=== PATIENT | female | born 2000 | race Caucasian/White ===

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

== ENCOUNTER 2021-06-29 01:58 | Outpatient (CLI) | payer OTHER, MEDICAID, SELFPAY ==
[2021-06-29 02:19] VITALS: BMI 36.8
[2021-06-29 02:43] LABS: Color, Urine Yellow (Yellow); Glucose, Dipstick Normal (Normal); Ketone-Dipstick Negative (Negative); Leukocyte Esterase-Dipstick Negative /ul (Negative); Nitrite-Dipstick Negative (Negative); Occult Blood-Urine Negative /ul (Negative); Protein-Dipstick Negative (Negative); Specific Gravity, Urine 1.015 (1.002-1.030); Urine Bilirubin Dipstick Negative (Negative); Urine Clarity Clear (Clear); Urine Urobilinogen Normal (Normal)
[2021-06-29] MEDS: Lactated Ringers 1,000 ML 999 ML IV (03:30)
[2021-06-29 03:50] LABS: Absolute Lymphocyte Count 2.31 X10^3/uL (0.83-4.51); Absolute Neutrophil Count 9.2 X10^3/uL (2.0-7.7); Basophil# 0.04 X10^3/uL; Basophil% 0.3 % (0-1); Eosinophil# 0.16 X10^3/uL; Eosinophils% 1.2 % (0-5); Hematocrit 31.3 % (37-47); Hemoglobin 10.5 g/dL (12.0-15.0); Lymphocyte # 2.31 X10^3/ul (0.83-4.51); Lymphocyte % 17.7 % (19-41); Mean Corp Hgb Conc 33.5 g/dL (32-36); Mean Corpuscular Hgb 31.2 pg (27.0-32.0); Mean Corpuscular Volume 92.9 fL (81-99); Mean Platelet Vol. 9.3 fl (6.2-12.0); Monocyte# 1.24 X10^3/uL; Monocyte% 9.5 % (0-10); NRBC Flagged by Analyzer 0 % (0-5); Neutrophil % 70.5 % (47-70); Platelet Count 328 K/mm3 (150-450); RBC Distribution Width CV 12.3 % (11.6-14.6); RBC Distribution Width SD 42.3 fl (35.1-43.9); Red Blood Count 3.37 M/mm3 (4.2-5.4); White Blood Count 13.1 K/mm3 (4.4-11.0)
[2021-06-29] MEDS: Ondansetron 4 MG/2 ML Vial 8 MG IV (04:07)
[2021-06-29] MEDS: Acetaminophen 500 MG Tablet 1000 MG PO (04:07)
[2021-06-29 04:08] LABS: ALB/GLOB Ratio 0.7 RATIO (0.9-2.4); AST(SGOT) 12 U/L (15-37); Alanine Aminotransfer ALT/SGPT 15 U/L (13-56); Albumin, Serum 2.9 g/dL (3.2-5.0); Alkaline Phosphatase 79 U/L (45-117); Anion Gap 9 (5-15); BUN 9 mg/dL (7-18); BUN/Creat Ratio 13.4 RATIO (10-20); Calcium,Total 8.5 mg/dL (8.5-10.1); Chloride 106 mmol/L (98-107); Creatinine, Serum 0.67 mg/dL (0.55-1.02); EST Glomerular Filtration Rate 117 mL/min (>60); Est Glom Filt Rate - Afr Amer 142 mL/min (>60); Estimated Creatinine Clearance 105.05 ml/min; Globulin 3.9 g/dL (2.2-4.2); Glucose 95 mg/dL (74-106); Potassium 3.5 mmol/L (3.5-5.1); Protein, Total 6.8 g/dL (6.4-8.2); Sodium Level 139 mmol/L (136-145)
[2021-06-29] MEDS: proCHLORPERazine 10 MG/2 ML Vial IV (06:19)
[2021-06-29] MEDS: 0.9% Saline Lock 10 ML Syringe IV (06:25)
[2021-06-29 08:27] VITALS: BP 137/82; PULSE 99
[2021-06-29 08:28] VITALS: BP 117/67; PULSE 98
[2021-06-29 08:29] VITALS: PULSE 180; TEMP 36.3; O2SAT 81
[2021-06-29 08:30] VITALS: O2SAT 100
--- NOTE | 2021-06-29 08:45 | OB.TRI.NOTE ---
HPI - General HPI Narrative JIM ZHANG, is a 21 F who presents with irregular ctx's, nausea, vomiting. No vb, lof. Good FM. PFSH PFSH Home Medications Slow Fe 1 tab PO/SL DAILY 06/29/21 [History Last Taken Unknown] [id number] [] tab PO 06/29/21 [History Last Taken Unknown] Allergy/AdvReac Type Severity Reaction Status Date / Time amoxicillin Allergy Rash Verified 06/29/21 02:20 Penicillins [PCN] Allergy Rash Verified 06/29/21 02:20 Social History Smoking Status: Current every day smoker NST FHR Rate Baby A Baseline: 140 Variability:: Moderate Accelerations:: 15 x 15 Decelerations:: None NST Reactive:: Yes FHR Category:: Category I Uterine Activity:: Irregular ctx's Assessment & Plan (1) 33 weeks gestation of : PLAN: Cervix unchanged on recheck and patient very comfortable appearing. No regular ctx's on toco. N/V improved with fluids and Zofran. Tolerating PO. Ok to discharge home. (2) Uterine contractions:
== END 2021-06-29 09:12 | disposition home or self-care (01) ==
LOC: WPOUT 02:04 → WP 02:05
PROVIDERS: PCP Pediatrics; Visit Provider Obstetrics & Gynecology
DX: O21.2 Late vomiting of pregnancy (principal); N85.8 Other specified noninflammatory disorders of uterus; F17.200 Nicotine dependence, unspecified, uncomplicated; O99.333 Smoking (tobacco) complicating pregnancy, third trimester; Z3A.33 33 weeks gestation of pregnancy
CPT/HCPCS: 96361; 96374; 96375; 36415; 59025; 59050; 80053; 81002; 85025; 99218; J7120; A4216; G0378; J2405

== ENCOUNTER 2021-06-30 17:50 | Outpatient (CLI) | payer OTHER, MEDICAID, SELFPAY ==
[2021-06-29 02:19] VITALS: BMI 36.8
[2021-06-30 18:20] VITALS: BMI 35.8
[2021-06-30] MEDS: Lactated Ringers 1,000 ML 999 ML IV (18:20)
[2021-06-30] MEDS: Ondansetron 4 MG/2 ML Vial IM (18:47)
[2021-06-30 19:10] LABS: Absolute Neutrophil Count 8.1 X10^3/uL (2.0-7.7); Basophil# 0.05 X10^3/uL; Basophil% 0.4 % (0-1); Eosinophil# 0.25 X10^3/uL; Eosinophils% 2.1 % (0-5); Hematocrit 34.6 % (37-47); Hemoglobin 11.7 g/dL (12.0-15.0); Lymphocyte % 18.9 % (19-41); Mean Corp Hgb Conc 33.8 g/dL (32-36); Mean Corpuscular Hgb 31.3 pg (27.0-32.0); Mean Corpuscular Volume 92.5 fL (81-99); Mean Platelet Vol. 9.5 fl (6.2-12.0); Monocyte# 1.36 X10^3/uL; Monocyte% 11.2 % (0-10); NRBC Flagged by Analyzer 0 % (0-5); Neutrophil # 8.13 X10^3/uL (2.7-7.7); Neutrophil % 66.9 % (47-70); Platelet Count 347 K/mm3 (150-450); RBC Distribution Width CV 12.5 % (11.6-14.6); RBC Distribution Width SD 42.2 fl (35.1-43.9); Red Blood Count 3.74 M/mm3 (4.2-5.4); White Blood Count 12.2 K/mm3 (4.4-11.0)
[2021-06-30 19:27] LABS: ALB/GLOB Ratio 0.7 RATIO (0.9-2.4); AST(SGOT) 11 U/L (15-37); Alanine Aminotransfer ALT/SGPT 16 U/L (13-56); Albumin, Serum 3.1 g/dL (3.2-5.0); Alkaline Phosphatase 89 U/L (45-117); Anion Gap 9 (5-15); BUN 5 mg/dL (7-18); BUN/Creat Ratio 7.5 RATIO (10-20); Calcium,Total 8.8 mg/dL (8.5-10.1); Chloride 103 mmol/L (98-107); Creatinine, Serum 0.67 mg/dL (0.55-1.02); EST Glomerular Filtration Rate 118 mL/min (>60); Est Glom Filt Rate - Afr Amer 143 mL/min (>60); Estimated Creatinine Clearance 105.05 ml/min; Globulin 4.5 g/dL (2.2-4.2); Glucose 77 mg/dL (74-106); Potassium 3.6 mmol/L (3.5-5.1); Protein, Total 7.6 g/dL (6.4-8.2); Sodium Level 137 mmol/L (136-145)
[2021-06-30 19:35] VITALS: BP 129/71; PULSE 91
--- NOTE | 2021-07-01 09:12 | PN.OBGYN_ITS ---
Subjective Subjective Patient was having nausea and vomiting, and reported that she could not keep any food or liquids down. She was also having some cramping and irregular contractions. No fevers, abdominal pain, diarrhea. Requesting a work excuse. Objective Data Objective Data Vital Signs: Vital Signs Pulse BP 91 129/71 H 06/30/21 19:35 06/30/21 19:35 Weight: 195 lb 15.855 oz Body Mass Index (BMI) 35.8 Intake & Output: Intake and Output for Last 24 Hours 06/29/21 06/30/21 07/01/21 23:59 23:59 23:59 Intake Total 999 / 999 Balance 999 / 999 Lab / Micro Data Result Diagrams: 06/30/21 18:20 06/30/21 18:20 Labs: Laboratory Results - last 24 hr 06/30/21 18:20: WBC 12.2 H, RBC 3.74 L, Hgb 11.7 L, Hct 34.6 L, MCV 92.5, MCH 31.3, MCHC 33.8, RDW Std Deviation 42.2, RDW Coeff of Nava 12.5, Plt Count 347, MPV 9.5, Immature Gran % (Auto) 0.500, Neut % (Auto) 66.9, Lymph % (Auto) 18.9 L , [place] % (Auto) 11.2 H, Eos % (Auto) 2.1, Baso % (Auto) 0.4, Absolute Neuts (auto) 8.1 H, Absolute Lymphs (auto) 2.30, Nucleated RBC % 0 06/30/21 18:20: Sodium 137, Potassium 3.6, Chloride 103, Carbon Dioxide 25.0, Anion Gap 9, BUN 5 L, Creatinine 0.67, Estim Creat Clear Calc 105.05, Est GFR (MDRD) Af Amer 143, Est GFR (MDRD) Non-Af 118, BUN/Creatinine Ratio 7.5 L, Glucose 77, Calcium 8.8, Total Bilirubin 0.30, AST 11 L, ALT 16, Alkaline Phosphatase 89, Total Protein 7.6, Albumin 3.1 L, Globulin 4.5 H, Albumin/Globulin Ratio 0.7 L NST FHR Rate Baby A Baseline: 130 Variability:: Moderate Accelerations:: 15 x 15 Decelerations:: None NST Reactive:: Yes Uterine Activity:: No regular ctx's Assessment & Plan (1) 33 weeks gestation of : PLAN: Labs and vitals WNL. Improved with IVF hydration and Zofran. To follow up in office. (2) Nausea/vomiting in :
== END 2021-06-30 20:08 | disposition home or self-care (01) ==
LOC: WPOUT 18:01 → WP 18:02
PROVIDERS: PCP Pediatrics; Referring Provider Obstetrics & Gynecology; Visit Provider Obstetrics & Gynecology
DX: O21.2 Late vomiting of pregnancy (principal); Z3A.33 33 weeks gestation of pregnancy
CPT/HCPCS: 96360; 36415; 59025; 59050; 80053; 85025; 99218; J7120; G0378; J2405

== ENCOUNTER 2021-08-10 11:50 | Inpatient (IN) | payer OTHER, MEDICAID, SELFPAY ==
[2021-08-10] VITALS (52 sets, daily range): BP systolic 85–127; BP diastolic 45–76; PULSE 71–165; RESP 18; TEMP 36.1–37; O2SAT 82–100; BMI 35.6
[2021-08-10] MEDS: Lactated Ringers 1,000 ML 50 ML IV (12:38)
[2021-08-10 12:45] LABS: Absolute Lymphocyte Count 1.61 X10^3/uL (0.83-4.51); Absolute Neutrophil Count 6.3 X10^3/uL (2.0-7.7); Basophil# 0.03 X10^3/uL; Basophil% 0.3 % (0-1); Eosinophil# 0.24 X10^3/uL; Eosinophils% 2.6 % (0-5); Hematocrit 32.7 % (37-47); Hemoglobin 10.9 g/dL (12.0-15.0); Lymphocyte # 1.61 X10^3/ul (0.83-4.51); Lymphocyte % 17.6 % (19-41); Mean Corp Hgb Conc 33.3 g/dL (32-36); Mean Corpuscular Hgb 30.8 pg (27.0-32.0); Mean Corpuscular Volume 92.4 fL (81-99); Mean Platelet Vol. 9.7 fl (6.2-12.0); Monocyte# 0.89 X10^3/uL; Monocyte% 9.7 % (0-10); NRBC Flagged by Analyzer 0 % (0-5); Neutrophil # 6.34 X10^3/uL (2.7-7.7); Neutrophil % 69.4 % (47-70); Platelet Count 313 K/mm3 (150-450); RBC Distribution Width CV 12.8 % (11.6-14.6); RBC Distribution Width SD 43.5 fl (35.1-43.9); Red Blood Count 3.54 M/mm3 (4.2-5.4); White Blood Count 9.2 K/mm3 (4.4-11.0)
--- NOTE | 2021-08-10 12:47 | PCM.HP.OB ---
HPI - General General Date of Admission: 08/10/21 Date of Service: 08/10/21 Chief Complaint: induction of labor HPI Narrative danny SANTO 21 @ 39 5/7 weeks presented to the office uncomfortable with advanced cervical dilation and desires induction of labor Maternal Data Information Final NEDRA: 08/12/21 Gestational age: 39 5/7 PFSH PFSH Home Medications Slow Fe 3 tab PO/SL DAILY 06/29/21 [History Last Taken 06/28/21 20:00 1 tab] [id number] [] 1 tab PO DAILY 06/29/21 [History Last Taken 06/28/21 20:00 1 tab] Epi E-Z Pen 1 ea OTHER PRN PRN 08/10/21 [History Last Taken Unknown] Allergy/AdvReac Type Severity Reaction Status Date / Time amoxicillin Allergy Rash Verified 06/29/21 02:20 animal dander Allergy Hives Verified 08/10/21 12:20 bee venom protein (honey bee) Allergy Hives Verified 08/10/21 12:20 Penicillins [PCN] Allergy Rash Verified 06/29/21 02:20 Social History Smoking Status: Current every day smoker ROS Constitutional Constitutional: Denies fatigue, fever(s) or malaise Eyes Eyes: Denies change in vision ENT HEENT: Denies dizziness or headache(s) Cardiovascular Cardiovascular: Denies chest pain, dyspnea or lightheadedness Respiratory/Chest Respiratory/Chest: Denies cough or dyspnea Gastrointestinal Gastrointestinal: Denies change in bowel habits Genitourinary Genitourinary: Denies burning urination or genital lesions Integumentary Integumentary: Denies rash Neurologic Neurologic: Denies confusion, dizziness, headache(s), numbness or weakness Vital Signs Vital Signs Vital Signs: 08/10/21 12:15 Temperature 97.2 F L Temperature Source Temporal Pulse Rate 112 H Blood Pressure 119/65 BP Systolic 119 BP Diastolic 65 Pulse Ox 98 Weight Weight: 88.451 kg Body Mass Index (BMI) 35.6 Physical Exam Const alert and no apparent distress General Appearance: cooperative HEENT normocephalic Resp normal respiratory effort Cardio regular rate GI soft to palpation GI Narrative: gravid, nontender, appropriate for gestational age Extremity no calf tenderness General Extremity: edema Skin no wounds Rashes: No rashes noted Psych activity/motor behavior normal Labs Labs Labs: Blood Type Pending Antibody Screen Pending Hct 32.7 % (37-47) L Hgb 10.9 g/dL (12.0-15.0) L C.trachomatis DNA (PCR) Negative (Negative) Assessment & Plan (1) 39 weeks gestation of : PLAN: R/B/A/P to induction of labor reviewed, questions answered nad she desires to proceed. Pit/AROM induction. Epidural, NO or IV meds prn pain control. EFW < 4500 gm clinically, pelvis clinically adequate to expect vaginal delivery. (2) Multigravida in third trimester: (3) Elective induction of labor planned:
[2021-08-10] MEDS: Oxytocin 30 units/NS 500 ml 30 UNITS/500 ML IV.SOLN IV (12:59)
[2021-08-10] MEDS: Lactated Ringers 500 ML 999 ML IV ×2 (16:00→17:55)
[2021-08-10] MEDS: fentaNYL-bupivacaine (epidural) 100 ML BAG EPIDURAL (16:36)
[2021-08-10] MEDS: Mag Hydrox/Al Hydrox/Simeth 30 ML UDC PO (18:04)
[2021-08-10] MEDS: Ondansetron 4 MG/2 ML Vial IV (19:44)
[2021-08-10] MEDS: 0.9% Saline Lock 10 ML Syringe IV (19:45)
--- NOTE | 2021-08-10 20:07 | OP.PCM_ITS ---
Assessment & Plan (1) Normal vaginal delivery: Maternal Data Information Final NEDRA: 08/12/21 Gestational age: 39 5/7 Vaginal Delivery Maternal Presentation Maternal Presentation: Elective Induction Type of Induction: Pitocin and Amniotomy Operative Information Date of Procedure: 08/10/21 Pre-Operative Diagnosis: labor Post-Operative Diagnosis: same Surgery / Procedure Performed: Spontaneous Vaginal Delivery Type of Anesthesia: Epidural Special Medications: none Drain: Thornton to straight drain Estimated Blood Loss: 300 Time of Delivery: 19:56 Findings Description of Procedure: A vigorous [female] infant was delivered [BRYNN] over an intact perineum. A tight nuchal cord was reduced without difficulty. The remainder the infant was delivered with maternal pushing and gentle traction only in less than 15 seconds. The Pitocin infusion was initiated for active ma nagement of the third stage. The cord was clamped and cut [after 1 minute]. The was attended to by the waiting nursing staff. The placenta was delivered spontaneously and intact. The cervix and vagina were intact. Sponge and needle counts were correct. A vaginal sweep was completed by me. Presentation: BRYNN Amniotic Membrane Rupture Type: Artificial Amniotic Fluid Description: Clear Placental Delivery Description: Spontaneous Placenta Disposition: [facility] Cord Vessel Description: 3 Vessels Cord Entanglement: Around neck x 1, tight Nuchal Cord Compression: Without compression Infant A Gender: Female (Michelle) (1 minute): 8 (5 minute): 9 Delayed Cord Clamping: Yes Post Vaginal Delivery Medications Given After Delivery: IV Pitocin Episiotomy Description: None Laceration: None Complication Complications: None Admit VTE Documentation VTE Present on Admission: No VTE Mechan Device Prophylaxis: None VTE Pharm Prophylaxis Ordered: No Reason Prophylaxis Not Ordered: Procedure Not Indicated
[2021-08-10] MEDS: Oxytocin 30 units/NS 500 ml 30 UNITS/500 ML IV.SOLN 334 UNITS IV (21:58)
[2021-08-10] MEDS: Acetaminophen 500 MG Tablet 1000 MG PO (22:04)
[2021-08-10] MEDS: Ibuprofen 600 MG Tablet PO (23:30)
[2021-08-11 03:42] VITALS: BP 95/40; PULSE 73; RESP 16
[2021-08-11] MEDS: Acetaminophen 500 MG Tablet 1000 MG PO ×3 (04:45→17:02)
[2021-08-11] MEDS: Ibuprofen 600 MG Tablet PO ×3 (06:40→21:25)
[2021-08-11 07:42] VITALS: BP 118/38; PULSE 79; RESP 18; TEMP 36.1; O2SAT 97
--- NOTE | 2021-08-11 09:42 | PCM.PN.OB ---
Subjective Subjective Pain well controlled. Average lochia. Objective Data Objective Data Vital Signs: Vital Signs Temp Pulse Resp BP Pulse Ox 97 F L 79 18 118/38 L 97 08/11/21 07:42 08/11/21 07:42 08/11/21 07:42 08/11/21 07:42 08/11/21 07:42 Oxygen Delivery Method Room Air Weight: 88.451 kg Body Mass Index (BMI) 35.6 Intake & Output: Intake and Output for Last 24 Hours 08/09/21 08/10/21 08/11/21 23:59 23:59 23:59 Intake Total 2354.83 / 2354.83 333 / 333 Output Total 600 / 600 850 / 850 Balance 1754.83 / 1754.83 -517 / -517 Lab / Micro Data Result Diagrams: 08/10/21 12:30 Labs: Laboratory Results - last 24 hr 08/10/21 12:30: WBC 9.2, RBC 3.54 L, Hgb 10.9 L, Hct 32.7 L, MCV 92.4, MCH 30.8, MCHC 33.3, RDW Std Deviation 43.5, RDW Coeff of Nava 12.8, Plt Count 313, MPV 9.7, Immature Gran % (Auto) 0.400, Neut % (Auto) 69.4, Lymph % (Auto) 17.6 L, [place] % (Auto) 9.7, Eos % (Auto) 2.6, Baso % (Auto) 0.3, Absolute Neuts (auto) 6.3, Absolute Lymphs (auto) 1.61, Nucleated RBC % 0 08/10/21 12:30: Blood Type A NEGATIVE, Antibody Screen NEGATIVE 08/10/21 21:25: Screen NEGATIVE, Baby's Blood Type A POSITIVE, Baby's SHANTEL NEGATIVE Micro: Microbiology 08/10/21 12:30 Nasal Secretion SARS-CoV-2 Antigen (Rapid) - Final Physical Exam Const alert and no apparent distress Narrative: Fundus firm, below umbilicus. Assessment & Plan (1) Normal vaginal delivery: PLAN: day #1. Patient is doing well. is doing well. Desires discharge home later tonight if okay with pediatrics. Desires Depo-Provera for control.
--- NOTE | 2021-08-11 09:43 | PCM.DC.SUM ---
Providers Date of Admission: 08/10/21 Primary Care Physician: Dr. Renzo Figueroa MD Reason For Visit: VAGINAL DELIVERY Diagnosis Discharge Diagnosis (1) Normal vaginal delivery: Status: Acute Code(s): O80 - Encounter for full-term uncomplicated delivery Medications at Discharge Home Medications Slow Fe 3 tab PO/SL DAILY 06/29/21 [id number] [] 1 tab PO DAILY 06/29/21 Epi E-Z Pen 1 ea OTHER PRN PRN 08/10/21 Hospital Course Operations None Procedures None Summary of Care Provided Hospital Course: Patient was admitted for the induction of labor due to advanced cervical dilation and maternal discomfort. She delivered without difficulty. She desired discharge home on postoperative day #1 with routine instructions. Weight / BMI Weight Weight: 88.451 kg Body Mass Index (BMI) 35.6 ABG / Lab / Microbiology Data Result Diagrams: 08/10/21 12:30 Laboratory: Laboratory Results - last 24 hr 08/10/21 12:30: WBC 9.2, RBC 3.54 L, Hgb 10.9 L, Hct 32.7 L, MCV 92.4, MCH 30.8, MCHC 33.3, RDW Std Deviation 43.5, RDW Coeff of Nava 12.8, Plt Count 313, MPV 9.7, Immature Gran % (Auto) 0.400, Neut % (Auto) 69.4, Lymph % (Auto) 17.6 L, [place] % (Auto) 9.7, Eos % (Auto) 2.6, Baso % (Auto) 0.3, Absolute Neuts (auto) 6.3, Absolute Lymphs (auto) 1.61, Nucleated RBC % 0 08/10/21 12:30: Blood Type A NEGATIVE, Antibody Screen NEGATIVE 08/10/21 21:25: Screen NEGATIVE, Baby's Blood Type A POSITIVE, Baby's SHANTEL NEGATIVE Microbiology: Microbiology 08/10/21 12:30 Nasal Secretion SARS-CoV-2 Antigen (Rapid) - Final Meaningful Use Info Meaningful Use Diagnoses (Choose all that apply): None applicable Discharge Plan Admission Admit Date/Time: 08/10/21 11:50 Primary Reason for Your Visit: Vaginal delivery Attending Provider: Kena Higgins Primary Care Provider: Renzo Figueroa Instructions Patient Instructions: After a Vaginal Discharge Orders/Prescriptions Prescriptions: No Action 1 mg Tablet 1 tab PO DAILY RF: 0 Slow Fe 3 tab PO/SL DAILY RF: 0 Epi E-Z Pen 1 ea OTHER PRN PRN (Reason: bee sting allergy) RF: 0 Referrals / Follow Up: Renzo Figueroa MD [Primary Care Provider] - Disposition Disposition (needs filled in before D/C Order can be placed): Home, Self Care
[2021-08-11] MEDS: MedroxyPROGESTERone 150 MG/ML Syringe IM (11:03)
[2021-08-11 11:11] VITALS: BP 109/60; PULSE 86; RESP 16; TEMP 36.2
--- NOTE | 2021-08-11 11:43 | CASEMGMT ---
SW Note Referral Source: hand workerpersonal care aide Reason: History of bipolar and anxiety SW met with patient and the fob in the room. Patient was holding the nb and appeared to be appropriately bonding with the . Mother brightened when speaking about the . Patient gave verbal consent to speak to her in the presence of the significant other, Con. 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 Patient said that was tired this morning in regards to breast feeding MOB's child: Stephon age 1 1/2. Grandparents are watching him while patient is in the hospital. Housing: Patient resides in a rental with her parents, PRIYA, Stephon and Michelle. She indicated her parents help with the child(joi). Transportation: Patient reports she is able to drive and has access to transportation. Supplies: Patient reports she has a carseat, bassinet, crib, clothes and diapers. Patient said I nested well. Supports: Patient reports her support are her parents, Con (PRIYA) and even my son. Education Level: Patient reports that she graduated high school and had some college. She reports no learning difficulties. She reports she did not continue college as she did not know what career path she wanted to pursue. 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 She plans to take 6 weeks off. Agencies: Patient reports that she has [employer] insurance as her secondary insurance. She said that she is also linked with WIC and plans to call them to advise of the 's . Patient was educated on [facility] but declined a referral. SW gave patient handout on how to contact [facility] for a referral. FOB: Con (Significant Other) Time Together: over 2 years Involved at : FOB reports that he will be involved with the . Employment: Patient is employed at [employer]. He plans to take 1 week off and is hoping his boss will allow him to take more. Other children: FOB reports the is his first child FOB MH/AOD/DV History: Patient reports history of ADD and anxiety with FOB. FOB reports that he has learned to manage it himself and reports he has learned coping skills. Patient's mental health History: Chart review noted that patient was seen in ED at [facility] at age 14 for SI and had psych hospitalization. Patient reports her diagnosis is anxiety, bipolar tendencies and MDD. Patient said that she was previously hospitalized 3 times at [facility]. Patient reports she has no current SI/HI. PHQ-2 given with score of 0. Patient said that she believes she had post depression after the of her son, Stephon. SW asked about what her symptoms were and she said I cried alot. Patient said that she managed by leaning on him (FOB) alot. Patient said that she is not currently in counseling and feels she has learned to manage. Patient said that she has a good mindset and feels that this post period will be different in relations to life situations. SW educated patient on Post Depression. Patient was asked about AOD and Drug use. Patient denied drug or alcohol use. Patient said I can't even recall the last time I got a buzz. Patient reports that she smokes cigarettes. Patient had reported that she had quit then her grandfather , her son went to [facility] for one week and my coping skill was smoking so she had resumed smoking. SW educated patient about the need to smoke outside and patient said that they always smoke outside. SW educated patient on PPD, Safe Sleeping and Shaken Baby Syndrome. SW provided handout on 10 facts about anxiety and depression, and Post depression checklist, [facility] [place], Safe Sleep brochure, [facility] Mothers of Newborns, Depression and Anxiety Post Support including phone number, On line resources for Post mood and anxiety disorder and list of Counseling Agencies. SW educated patient on when to seek support for any symptoms of depression (5 days) and contact the MD. Patient and FOB verbalized understanding. Patient declined referral to [facility]. She said that she will call [facility] to update them regarding 's . No other social work needs at this time. SW updated RN. RN Odette voiced no concerns. RN said that previous RN had indicated patient was demanding and entitled but she has no issues or concerns with patient. Plan: Home with . Maureen KIM
[2021-08-11 16:10] VITALS: BP 107/58; PULSE 67; RESP 16; TEMP 36.9
[2021-08-11 19:20] VITALS: BP 109/64; PULSE 61; RESP 18; TEMP 36.6; O2SAT 98
[2021-08-11 21:56] VITALS: BP 109/64; PULSE 61; RESP 18; TEMP 36.6; O2SAT 98
== END 2021-08-11 22:05 | disposition home or self-care (01) | DRG 807 ==
PROVIDERS: Admitting Provider Obstetrics & Gynecology; PCP Pediatrics; Referring Provider Obstetrics & Gynecology; Visit Provider Obstetrics & Gynecology
DX: O62.0 Primary inadequate contractions (principal); Z37.0 Single live birth; O69.81X0 Labor and delivery complicated by cord around neck, without compression, not applicable or unspecified; Z3A.39 39 weeks gestation of pregnancy; O99.334 Smoking (tobacco) complicating childbirth; F17.200 Nicotine dependence, unspecified, uncomplicated; Z88.0 Allergy status to penicillin; Z91.09 Other allergy status, other than to drugs and biological substances
CPT/HCPCS: 59025; 59050; 85025; 85461; 86850; 86900; 86901; 87426; 90384; 99218; J7120; A4216; G0378; J2405; J2790; J3490